=== PATIENT | male | born 2000 ===

== ENCOUNTER 2020-01-11 08:37 | Emergency (ER) | payer OTHER | END 2020-01-11 12:06 | disposition home or self-care (01) | LOC: ER 08:37 | DX: S30.22XA Contusion of scrotum and testes, initial encounter (principal); N43.2 Other hydrocele; N50.3 Cyst of epididymis; I86.1 Scrotal varices; W18.09XA Striking against other object with subsequent fall, initial encounter; Y93.68 Activity, volleyball (beach) (court); Y92.832 Beach as the place of occurrence of the external cause; Y99.8 Other external cause status ==

== ENCOUNTER 2020-01-14 09:27 | Outpatient (CLI) | payer OTHER | END 2020-01-14 09:45 | disposition home or self-care (01) | LOC: SONOGRAMA 09:27 → MAMO-SONO 10:45 | PROVIDERS: ATTEND Urology | DX: I86.1 Scrotal varices (principal) ==

== ENCOUNTER 2021-03-03 06:30 | Day surgery (SDC) | payer OTHER | END 2021-03-03 16:50 | disposition home or self-care (01) | LOC: CIR.AMB 06:30 | PROVIDERS: ATTEND Urology | DX: I86.1 Scrotal varices (principal); Z20.822 Contact with and (suspected) exposure to COVID-19 ==

== ENCOUNTER 2024-04-16 09:50 | Outpatient (CLI) | payer OTHER | END 2024-04-16 10:01 | disposition home or self-care (01) | LOC: SONOGRAMA 09:50 | PROVIDERS: ATTEND Urology | DX: N43.3 Hydrocele, unspecified (principal) ==